=== PATIENT | male | born 1990 | race Caucasian/White ===

== ENCOUNTER 2021-04-15 14:49 | Emergency (ER) | payer SELFPAY ==
[~2021-04-15] VITALS: Ht 188 cm; Wt 90.9 kg
[2021-04-15 15:40] VITALS: BP 144/100; PULSE 76; TEMP 98.3
[2021-04-15] MEDS ORDERED: CIPRO 500MG TA500 MG PO (16:28)
[2021-04-15] MEDS ORDERED: MOTRIN 800800 MG/TAB PO (16:28)
[2021-04-15] MEDS ORDERED: NORCO 325 MG-51 TAB PO (16:28)
== END 2021-04-15 16:54 | disposition home or self-care (01) ==
LOC: COL.ER 14:49
DX: N45.2 Orchitis (principal); N45.1 Epididymitis
CPT/HCPCS: J0696

== ENCOUNTER 2021-04-17 08:37 | Day surgery (SDC) | payer SELFPAY ==
[~2021-04-17] VITALS: Ht 185.4 cm; Wt 90.9 kg
[2021-04-17] VITALS (8 sets, daily range): BP systolic 120–148; BP diastolic 63–86; PULSE 72–80; TEMP 98.1–98.5
[~2021-04-17 08:37] MED LIST changes: -COLACE 100100 MG/CAP PO
[2021-04-17 09:28] LABS: BASO % 0.2 % (0.0-2.0); EOS # 0.1 K/mm3 (0.0-0.7); EOS % 0.5 % (0.0-4.0); GRAN # 6.4 K/mm3 (1.4-6.5); HEMATOCRIT 39.5 % (42.0-52.0); HEMOGLOBIN 14.1 g/dl (13.5-18.0); LYMPH # 1.6 K/mm3 (1.2-3.4); LYMPH % 17.5 % (20.0-51.0); MEAN CELL VOLUME 80 fl (80.0-100.0); MEAN CORPUSCULAR HEMOGLOBIN 29 pg (27-31); MEAN CORPUSCULAR HGB CONC 36 g/dl (33.0-37.0); MONO # 1.2 K/mm3 (0.1-0.6); MONO % 12.4 % (1.7-9.3); PLATELET COUNT 165 K/mm3 (130-400); RED BLOOD COUNT 4.91 M/mm3 (4.20-5.60); REDCELL DISTRIBUTION WIDTH-CV 11.7 % (11.5-14.5)
[2021-04-17 09:46] LABS: ALBUMIN 3.9 gm/dL (3.5-5.0); CALCIUM 8.9 mg/dL (8.4-10.2); CREATININE, serum 1.2 mg/dL (0.72-1.25); POTASSIUM 3.4 mmol/L (3.5-4.5)
--- NOTE | 2021-04-17 10:40 | NUR ---
Patient alert and oriented, answers questions appropriately. See assessment. NPO since 0630 this am. No c/o pain or discomfort. No other c/o at this time.
--- NOTE | 2021-04-17 11:51 | NUR ---
To surgery with surgical staff at this time. Consent signed.
[2021-04-17] MEDS ORDERED: NORCO 325 MG-51 TAB PO (12:34)
[2021-04-17] MEDS ORDERED: COLACE 100100 MG/CAP PO (12:34)
--- NOTE | 2021-04-17 13:54 | NUR ---
Patient returns from OR. Assessment unchanged except incision to scrotom with edges well approximated, no drainage noted. Gauze fluff and scrotal support in place. Post op vitals initiated. No c/o at this time.
--- NOTE | 2021-04-17 17:25 | NUR ---
Discharge instructions reviewed with patient and family, verbalized understanding. Discharged ambulatory to auto/home with family at 1725.
== END 2021-04-17 17:25 | disposition home or self-care (01) ==
LOC: COL.ER 08:37 → SURG 09:12 → SDCO 09:12 → SURG 17:25 → SDCO 17:25
PROVIDERS: Family Medicine
DX: N50.89 Other specified disorders of the male genital organs (principal); N44.00 Torsion of testis, unspecified
CPT/HCPCS: A9284; G0378; J1885; J2765; J3010; J7120

== ENCOUNTER → 2021-04-17 | Outpatient (CLI) | payer SELFPAY ==
[~2021-04-17] MED LIST: CIPRO 500MG TA500 MG PO; COLACE 100100 MG/CAP PO; MOTRIN 800800 MG/TAB PO; NORCO 325 MG-51 TAB PO
== END ==
LOC: COL.RAD 07:45
DX: N50.89 Other specified disorders of the male genital organs (principal)